=== PATIENT | male | born 1970 | race Caucasian/White ===

== ENCOUNTER 2018-03-17 06:57 | Emergency (ER) | payer MEDICAID ==
[~2018-03-17] VITALS: Ht 172.7 cm; Wt 109.0 kg
[2018-03-17] MEDS ORDERED: KETOROLAC 60MG/2ML VIAL IM ONE (07:45)
[2018-03-17 08:32] LABS: CLARITY URINE CLEAR (CLEAR); COLOR URINE YELLOW (YELLOW); KETONES URINE NEGATIVE (NEGATIVE); LEUKOCYTE ESTERASE URINE NEGATIVE (NEGATIVE); NITRITE URINE NEGATIVE (NEGATIVE); OCCULT BLOOD URINE NEGATIVE (NEGATIVE); PH URINE 5.5 (4.5-8.0); PROTEIN URINE NEGATIVE (NEGATIVE); SPECIFIC GRAVITY URINE 1.019 (1.005-1.030); UROBILINOGEN URINE 0.2 E.U./dL (0.2-1.0)
[2018-03-17 09:30] VITALS: BP 126/70
== END 2018-03-17 09:30 | disposition home or self-care (01) ==
LOC: ER 06:57
DX: S39.012A Strain of muscle, fascia and tendon of lower back, initial encounter (principal); X58.XXXA Exposure to other specified factors, initial encounter; Y93.89 Activity, other specified; Y92.89 Other specified places as the place of occurrence of the external cause; R03.0 Elevated blood-pressure reading, without diagnosis of hypertension
CPT/HCPCS: 81003; 96372; 99283; J1885

== ENCOUNTER 2022-05-27 08:21 | Emergency (ER) | payer MEDICAID ==
[~2022-05-27] VITALS: Ht 172.7 cm; Wt 113.0 kg
[2022-05-27 08:41] VITALS: BP 110/66
[2022-05-27] MEDS ORDERED: DICYCLOMINE 10 MG/5 ML ORAL SYR PO STA (10:27)
[2022-05-27] MEDS ORDERED: ONDANSETRON 4MG ODT PO STA (10:27)
[2022-05-27 11:03] LABS: HEMATOCRIT. 42.7 % (42.0-52.0); HEMOGLOBIN. 14.6 g/dL (14.0-18.0); MEAN CORPUSCULAR HEMOGLOBIN 30.4 pg (28.0-32.0); MEAN CORPUSCULAR VOLUME 88.6 fL (80.0-94.0); PLATELET 208 x1000/uL (130-400); RED BLOOD CELL COUNT 4.82 mill/uL (4.7-6.1); RED CELL DISTRIBUTION WIDTH 13.5 % (11.6-14.6)
[2022-05-27 11:15] LABS: CHLORIDE 101 mEq/L (98-107)
[2022-05-27] MEDS ORDERED: DICYCLOMINE 10 MG/5 ML ORAL SYR PO NR (11:30)
[2022-05-27] MEDS ORDERED: SODIUM CHLORIDE 0.9% 1,000 ML IV ONE (11:30)
[2022-05-27 13:53] LABS: PLATELET ESTIMATE NORMAL
== END 2022-05-27 18:58 | disposition home or self-care (01) ==
LOC: ER 08:21
DX: N17.9 Acute kidney failure, unspecified (principal); K52.9 Noninfective gastroenteritis and colitis, unspecified; E11.9 Type 2 diabetes mellitus without complications
CPT/HCPCS: 36415; 74176; 80053; 83690; 85025; 96360; 99284; J7030; Q0162